=== PATIENT | female | born 1935 | race Caucasian/White ===

== ENCOUNTER 2017-06-23 17:50 | Emergency (ER) | payer OTHER ==
[~2017-06-23] VITALS: Ht 162.6 cm; Wt 89.9 kg
[~2017-06-23 17:50] MED LIST: ACETAMINOPHEN325 M1 PO; ADULT LOW STREN81 M2 PO; ANTIFUNGAL15 G1 TP; ASPIRIN325 MG PO; ATENOLOL25 MG PO; ATENOLOL50 MG PO; ATIVAN0.5 MG PO; ATORVASTATIN CA40 MG PO; Aspirin E.C. PO; BUSPAR15 MG PO; CAPTOPRIL25 MG PO; CAPTOPRIL50 MG PO; CARDIZEM CD240 MG PO; CARDIZEM120 MG PO; CEPACOL SORE T1 EAC9 MM; COL-RITE100 M1 PO; COUMADIN2 MG PO; COUMADIN2.5 MG PO; Cardizem PO; Coumadin,Jantoven PO; DILTIAZEM 24HR240 MG PO; DILTIAZEM PO; DOCUSATE SODIU100 MG PO; DULCOLAX10 MG PR; EFFEXOR XR37.5 MG PO; EFFEXOR XR75 MG PO; EFFEXOR100 MG PO; ELIQUIS5 MG PO; ENDURON5 MG PO; FLEET ENEMA-AD118 ML PR; FLUTICASONE PRO16 GM BOTH NARES; KEFLEX500 MG PO; KLOR-CON 1010 ME1 PO; LASIX20 MG PO; LISINOPRIL5 MG PO; LITE COAT ASPI325 M1 PO; LOSARTAN POTASS25 MG PO; LOVENOX100 MG/1 M SC; MAG-OXIDE400 MG PO; MELATIN3 MG PO; MILK OF MAGN PO; ONE DAILY MULT1 EACH PO; OXYBUTYNIN CHLO15 MG PO; POTASSIUM CHLO10 ME3 PO; PREPARATION H1 EAC4 PR; PRINZIDE 10-121 EACH PO; REMERON15 M2 PO; TRAMADOL HCL50 MG PO; TUMS500 MG PO; TYLENOL REGULA325 MG PO; ULTRAM50 MG PO; UTI-STAT L3875 MG/30 PO; VENLAFAXINE HCL75 M3 PO; VESICARE5 MG PO; VITAMIN D2000 UNIT PO; WARFARIN SODIUM3 MG PO; WARFARIN SODIUM4 MG PO; XARELTO15 MG PO; ZESTORETIC 20-1 EAC1 PO; ZETIA10 MG PO; ZOFRAN4 MG PO; ZOLOFT25 MG PO; ZOLOFT50 MG PO; [UNRECOGNIZED DRUG - OTHER] PO
[2017-06-23 23:19] VITALS: BP 124/64
== END 2017-06-23 23:21 ==
LOC: EME 17:50
DX: S80.11XA Contusion of right lower leg, initial encounter (principal); S90.02XA Contusion of left ankle, initial encounter; W24.0XXA Contact with lifting devices, not elsewhere classified, initial encounter; Y92.129 Unspecified place in nursing home as the place of occurrence of the external cause; Z79.01 Long term (current) use of anticoagulants
CPT/HCPCS: 73564; 73590; 73610; 99281; 99285

== ENCOUNTER 2017-08-19 16:16 | Inpatient (IN) | payer OTHER ==
[~2017-08-19] VITALS: Ht 160 cm; Wt 84.3 kg
[2017-08-19 17:56] LABS: HEMATOCRIT 37.5 % (36.0-46.0); HEMOGLOBIN 12.7 G/DL (11.9-15.5); MCHC 33.9 G/DL (30.0-36.0); MCV 85.6 FL (83-99); PLATELET COUNT 267 K/uL (156-360); RBC DIS.WIDTH-CV 16.1 % (11.8-14.6); RED BLOOD COUNT 4.38 M/uL (3.80-5.20); WHITE BLOOD COUNT 12.7 K/uL (4.1-10.2)
[2017-08-19 18:04] LABS: CHLORIDE 104 mEq/L (99-109); POTASSIUM 3.9 mEq/L (3.7-5.4); SODIUM 138 mEq/L (136-147)
[2017-08-19 18:06] LABS: GLUCOSE 101 mg/dL (70-99)
[2017-08-19 18:10] LABS: CREATININE 1.3 mg/dL (0.6-1.3); GFR ESTIMATE (CALCULATED) 42 mL/min/
[2017-08-19 18:11] LABS: UREA NITROGEN (BUN) 29 mg/dL (9-23)
[2017-08-19 18:18] LABS: TROP-I INTERPRETATION NEGATIVE; TROPONIN-I 0.03 ng/mL (0.0-0.30)
[2017-08-19] MEDS ORDERED: BICARSIM80 MG PO (18:29)
[2017-08-19] MEDS ORDERED: ROBITUSSIN COU237 M2 PO (18:30)
[2017-08-19] MEDS ORDERED: DUONEB 2.5-0.5 M3 ML AEROSOL (18:32)
[2017-08-19] MEDS ORDERED: BIOTENE MOISTUR45 ML PO (18:34)
[2017-08-19] MEDS ORDERED: K-DUR20 MEQ PO (18:35)
[2017-08-19] MEDS ORDERED: PRILOSEC20 MG PO (18:38)
[2017-08-20 06:24] LABS: CHLORIDE 109 MEQ/L (99-109); CREATININE 1.4 MG/DL (0.6-1.3); GFR ESTIMATE (CALCULATED) 38 mL/min/; GLUCOSE 81 mg/dL (70-99); POTASSIUM 3.4 MEQ/L (3.7-5.4); SODIUM 140 MEQ/L (136-147); UREA NITROGEN (BUN) 28 mg/dL (9-23)
[2017-08-20 07:33] VITALS: BP 132/68
[2017-08-20 11:23] VITALS: BP 141/70
[2017-08-21 06:54] LABS: CHLORIDE 107 MEQ/L (99-109); CREATININE 1.6 MG/DL (0.6-1.3); GFR ESTIMATE (CALCULATED) 33 mL/min/; GLUCOSE 90 mg/dL (70-99); POTASSIUM 3.7 MEQ/L (3.7-5.4); SODIUM 140 MEQ/L (136-147); UREA NITROGEN (BUN) 30 mg/dL (9-23)
[2017-08-21 07:10] VITALS: BP 134/82
[2017-08-21 12:16] LABS: C DIFF TOXIN NEGATIVE (NEGATIVE)
[2017-08-21 14:20] VITALS: BP 131/71
[2017-08-21 15:25] VITALS: BP 126/83
[2017-08-22 06:38] LABS: CHLORIDE 106 MEQ/L (99-109); CREATININE 1.5 MG/DL (0.6-1.3); GFR ESTIMATE (CALCULATED) 36 mL/min/; GLUCOSE 86 mg/dL (70-99); SODIUM 138 MEQ/L (136-147); UREA NITROGEN (BUN) 24 mg/dL (9-23)
[2017-08-22 07:32] VITALS: BP 138/67
[2017-08-22 11:25] VITALS: BP 124/70
[2017-08-22 16:15] VITALS: BP 132/68
[2017-08-22 20:39] VITALS: BP 120/52
[2017-08-23 06:50] LABS: CHLORIDE 106 MEQ/L (99-109); CREATININE 1.4 MG/DL (0.6-1.3); GFR ESTIMATE (CALCULATED) 38 mL/min/; GLUCOSE 81 mg/dL (70-99); POTASSIUM 3.5 MEQ/L (3.7-5.4); SODIUM 139 MEQ/L (136-147); UREA NITROGEN (BUN) 21 mg/dL (9-23)
[2017-08-23 07:30] VITALS: BP 136/73
[2017-08-23 11:21] VITALS: BP 129/68
[2017-08-23 16:24] VITALS: BP 122/70
[2017-08-24 00:57] VITALS: BP 126/60
[2017-08-24 07:30] VITALS: BP 133/81
[2017-08-24] MEDS ORDERED: LASIX40 MG PO (11:08)
[2017-08-24 14:00] VITALS: BP 128/78
[2017-08-24 15:25] VITALS: BP 136/78
== END 2017-08-24 18:50 | DRG 194 ==
LOC: EME 16:16 → 5EAST 18:25 → EDOF 18:25 → ENRESERV 18:35 → 5EAST 20:31
PROVIDERS: Emergency Medicine; Internal Medicine
DX: J18.9 Pneumonia, unspecified organism (principal); I13.0 Hypertensive heart and chronic kidney disease with heart failure and stage 1 through stage 4 chronic kidney disease, or unspecified chronic kidney disease; I50.32 Chronic diastolic (congestive) heart failure; N18.2 Chronic kidney disease, stage 2 (mild); L22 Diaper dermatitis; R32 Unspecified urinary incontinence; M79.81 Nontraumatic hematoma of soft tissue; T45.515A Adverse effect of anticoagulants, initial encounter; R19.7 Diarrhea, unspecified; G30.9 Alzheimer's disease, unspecified; F02.80 Dementia in other diseases classified elsewhere, unspecified severity, without behavioral disturbance, psychotic disturbance, mood disturbance, and anxiety; K21.9 Gastro-esophageal reflux disease without esophagitis; F41.9 Anxiety disorder, unspecified; F32.9 Major depressive disorder, single episode, unspecified; E78.5 Hyperlipidemia, unspecified; M41.9 Scoliosis, unspecified; G89.29 Other chronic pain; I48.2 Chronic atrial fibrillation; E66.01 Morbid (severe) obesity due to excess calories; I35.0 Nonrheumatic aortic (valve) stenosis; Z66 Do not resuscitate; Z79.01 Long term (current) use of anticoagulants; Z86.718 Personal history of other venous thrombosis and embolism; Z87.891 Personal history of nicotine dependence; Z68.32 Body mass index [BMI] 32.0-32.9, adult
CPT/HCPCS: 71046; 80048; 83880; 84484; 85027; 87493; 93005; 94640 76; 94760; 99202; 99281; 99285; J0696; J1940; J2543; J3370

== ENCOUNTER 2017-10-03 00:40 | Inpatient (IN) | payer OTHER ==
[~2017-10-03] VITALS: Ht 160 cm; Wt 98.3 kg
[~2017-10-03 00:40] MED LIST changes: +BICARSIM80 MG PO; +BIOTENE MOISTUR45 ML PO; +DUONEB 2.5-0.5 M3 ML AEROSOL; +K-DUR20 MEQ PO; +LASIX40 MG PO; +PRILOSEC20 MG PO; +ROBITUSSIN COU237 M2 PO
[2017-10-03 01:39] LABS: BASOPHIL (%) 0.1 % (0-1); EOSINOPHIL COUNT 0.2 K/uL (0-0.3); HEMATOCRIT 31.5 % (36.0-46.0); HEMOGLOBIN 11.1 G/DL (11.9-15.5); IMMATURE GRANULOCYTE (%) 0.7 % (0.0-0.7); LYMPHOCYTE (%) 6.1 % (15-42); MCH 28.6 PG (29.0-34.0); MCHC 35.2 G/DL (30.0-36.0); MCV 81.2 FL (83-99); MONOCYTE (%) 5.2 % (3-12); MONOCYTE COUNT 0.9 K/uL (0-0.8); NEUTROPHIL (%) 86.9 % (45-76); NEUTROPHIL COUNT 14.7 K/uL (1.8-6.4); PLATELET COUNT 251 K/uL (156-360); RBC DIS.WIDTH-CV 15.9 % (11.8-14.6); RBC DIS.WIDTH-SD 46.8 % (39-53); RED BLOOD COUNT 3.88 M/uL (3.80-5.20); WHITE BLOOD COUNT 16.9 K/uL (4.1-10.2)
[2017-10-03 01:44] LABS: INTER. NORMALIZED RATIO 1.2
[2017-10-03 01:47] LABS: PTT 27.1 SEC (25-37)
[2017-10-03 01:53] LABS: CHLORIDE 108 mEq/L (99-109); POTASSIUM 4.1 mEq/L (3.7-5.4); SODIUM 139 mEq/L (136-147)
[2017-10-03 01:54] LABS: MAGNESIUM 1.6 mg/dL (1.3-2.7)
[2017-10-03 01:55] LABS: GLUCOSE 99 mg/dL (70-99)
[2017-10-03 01:59] LABS: CREATININE 1.5 mg/dL (0.6-1.3); GFR ESTIMATE (CALCULATED) 36 mL/min/
[2017-10-03 02:00] LABS: UREA NITROGEN (BUN) 43 mg/dL (9-23)
[2017-10-03 02:05] LABS: TROP-I INTERPRETATION NEGATIVE; TROPONIN-I 0.02 ng/mL (0.0-0.30)
[2017-10-03 04:34] VITALS: BP 130/90
[2017-10-03 04:55] VITALS: BP 130/90
[2017-10-03] MEDS ORDERED: CARDIZEM CD,CA120 MG PO (05:28)
[2017-10-03] MEDS ORDERED: CALCIUM 600 +1 EA17 PO (05:30)
[2017-10-03] MEDS ORDERED: AUGMENTIN875 MG PO ×2 (05:31→05:32)
[2017-10-03] MEDS ORDERED: MUCINEX600 MG PO (05:33)
[2017-10-03 09:00] VITALS: BP 96/55
[2017-10-03 12:30] VITALS: BP 127/66
[2017-10-03] MEDS ORDERED: ROBITUSSIN DM118 ML PO (13:24)
[2017-10-03 19:20] VITALS: BP 123/57
[2017-10-03 23:15] VITALS: BP 121/74
[2017-10-04 03:40] VITALS: BP 116/68
[2017-10-04 05:26] LABS: ALBUMIN 2.1 G/DL (3.2-4.8); ALKALINE PHOSPHATASE 130 IU/L (3-129); ALT (GPT) 13 IU/L (3-49); AST (GOT) 20 IU/L (2-34); CHLORIDE 109 MEQ/L (99-109); CREATININE 1.6 MG/DL (0.6-1.3); GFR ESTIMATE (CALCULATED) 33 mL/min/; GLUCOSE 80 mg/dL (70-99); POTASSIUM 4.3 MEQ/L (3.7-5.4); SODIUM 140 MEQ/L (136-147); TOTAL BILIRUBIN 0.7 MG/DL (0.0-1.0); TOTAL PROTEIN 4.2 G/DL (6.4-8.3); UREA NITROGEN (BUN) 33 mg/dL (9-23)
[2017-10-04 05:42] LABS: HEMATOCRIT 33.9 % (36.0-46.0); MCH 27.8 PG (29.0-34.0); MCHC 32.4 G/DL (30.0-36.0); PLATELET COUNT 222 K/uL (156-360); RBC DIS.WIDTH-CV 16.2 % (11.8-14.6); RBC DIS.WIDTH-SD 49.7 % (39-53); RED BLOOD COUNT 3.96 M/uL (3.80-5.20); WHITE BLOOD COUNT 17.5 K/uL (4.1-10.2)
[2017-10-04 05:43] LABS: MCV 85.6 FL (83-99)
[2017-10-04 07:12] VITALS: BP 109/74
[2017-10-04 12:18] VITALS: BP 134/71
[2017-10-04 19:30] VITALS: BP 100/52
[2017-10-04 22:46] VITALS: BP 111/68
[2017-10-05 04:10] VITALS: BP 137/66
[2017-10-05 05:59] LABS: CHLORIDE 109 MEQ/L (99-109); CREATININE 1.8 MG/DL (0.6-1.3); GFR ESTIMATE (CALCULATED) 29 mL/min/; POTASSIUM 4.6 MEQ/L (3.7-5.4); SODIUM 143 MEQ/L (136-147); UREA NITROGEN (BUN) 37 mg/dL (9-23)
[2017-10-05 06:44] LABS: GLUCOSE 37 mg/dL (70-99)
[2017-10-05 08:10] VITALS: BP 98/60
[2017-10-05 12:18] VITALS: BP 97/64
[2017-10-05 19:30] VITALS: BP 112/65
[2017-10-06 00:04] VITALS: BP 118/76
[2017-10-06 03:32] VITALS: BP 107/58
[2017-10-06 05:47] LABS: HEMATOCRIT 31.8 % (36.0-46.0); MCH 27.4 PG (29.0-34.0); MCHC 31.4 G/DL (30.0-36.0); MCV 87.1 FL (83-99); PLATELET COUNT 216 K/uL (156-360); RBC DIS.WIDTH-SD 51.9 % (39-53); RED BLOOD COUNT 3.65 M/uL (3.80-5.20); WHITE BLOOD COUNT 16.9 K/uL (4.1-10.2)
[2017-10-06 06:14] LABS: ALBUMIN 2.1 G/DL (3.2-4.8); ALKALINE PHOSPHATASE 124 IU/L (3-129); ALT (GPT) 15 IU/L (3-49); AST (GOT) 17 IU/L (2-34); CHLORIDE 111 MEQ/L (99-109); CREATININE 1.8 MG/DL (0.6-1.3); GFR ESTIMATE (CALCULATED) 29 mL/min/; POTASSIUM 3.7 MEQ/L (3.7-5.4); SODIUM 144 MEQ/L (136-147); TOTAL BILIRUBIN 0.6 MG/DL (0.0-1.0); TOTAL PROTEIN 4.1 G/DL (6.4-8.3); UREA NITROGEN (BUN) 37 mg/dL (9-23)
[2017-10-06 06:41] LABS: GLUCOSE 98 mg/dL (70-99)
[2017-10-06 08:15] VITALS: BP 105/74
[2017-10-06 11:59] VITALS: BP 116/64
[2017-10-06 15:00] VITALS: BP 115/61
[2017-10-06 23:45] VITALS: BP 127/86
[2017-10-07 08:22] VITALS: BP 135/63
[2017-10-07 11:30] VITALS: BP 122/87
[2017-10-07 14:05] LABS: C DIFF TOXIN NEGATIVE (NEGATIVE)
[2017-10-07 15:30] VITALS: BP 126/68
[2017-10-08 00:50] VITALS: BP 167/86
[2017-10-08 15:16] VITALS: BP 128/78
[2017-10-08 18:58] VITALS: BP 102/69
[2017-10-08 23:30] VITALS: BP 147/69
[2017-10-09 05:27] VITALS: BP 113/75
[2017-10-09 07:05] VITALS: BP 124/85
[2017-10-09] MEDS ORDERED: CEFDINIR250 MG/51 PO (08:16)
[2017-10-09] MEDS ORDERED: LOPRESSOR50 MG PO (08:16)
[2017-10-09 10:50] VITALS: BP 114/75
== END 2017-10-09 14:30 | DRG 291 ==
LOC: EME → EDBD 00:40 → EME 00:40 → 4EAST 03:20 → EDOF 03:20 → ENRESERV 03:38 → 4EAST 04:08 → ENRESERV 10-06 12:16 → CANRESERV 10-06 12:16 → ENRESERV 10-06 12:21 → 5EAST 10-06 15:20 → ENPENDDIS 10-09 → 5EAST 10-09 14:30
PROVIDERS: Emergency Medicine; Family Medicine; Internal Medicine
DX: I13.0 Hypertensive heart and chronic kidney disease with heart failure and stage 1 through stage 4 chronic kidney disease, or unspecified chronic kidney disease (principal); I50.33 Acute on chronic diastolic (congestive) heart failure; J18.9 Pneumonia, unspecified organism; N17.9 Acute kidney failure, unspecified; J98.11 Atelectasis; F33.9 Major depressive disorder, recurrent, unspecified; E78.5 Hyperlipidemia, unspecified; Z51.5 Encounter for palliative care; Z66 Do not resuscitate; G30.9 Alzheimer's disease, unspecified; F02.80 Dementia in other diseases classified elsewhere, unspecified severity, without behavioral disturbance, psychotic disturbance, mood disturbance, and anxiety; F41.9 Anxiety disorder, unspecified; I35.0 Nonrheumatic aortic (valve) stenosis; N18.3 Chronic kidney disease, stage 3 (moderate); I48.2 Chronic atrial fibrillation; K21.9 Gastro-esophageal reflux disease without esophagitis; M19.90 Unspecified osteoarthritis, unspecified site; M41.9 Scoliosis, unspecified; R09.02 Hypoxemia; E66.9 Obesity, unspecified; G47.00 Insomnia, unspecified; G89.29 Other chronic pain; Z68.38 Body mass index [BMI] 38.0-38.9, adult; Z86.718 Personal history of other venous thrombosis and embolism; Z86.73 Personal history of transient ischemic attack (TIA), and cerebral infarction without residual deficits; Z87.891 Personal history of nicotine dependence; Z82.49 Family history of ischemic heart disease and other diseases of the circulatory system
CPT/HCPCS: 71045; 80048; 80053; 81003; 82948; 83605; 83735; 83880; 84484; 85025; 85027; 85610; 85730; 87040; 87493; 87641; 92610 GN; 93005; 94640; 94760; 94799; 99281; 99285; J0696; J1940; J2543; J3370; J7040